=== PATIENT | male | born 1975 | race Caucasian/White ===

== ENCOUNTER → 2020-01-05 10:52 | Outpatient (BNVA) | payer SELFPAY | PROVIDERS: Family Provider Nurse Practitioner Family; PCP Nurse Practitioner Family; Visit Provider Nurse Practitioner Family | DX: R50.9 Fever, unspecified (principal); J40 Bronchitis, not specified as acute or chronic; J06.9 Acute upper respiratory infection, unspecified; B97.89 Other viral agents as the cause of diseases classified elsewhere | CPT/HCPCS: 85025; 87400; 87635 ==

== ENCOUNTER → 2021-04-06 16:10 | Outpatient (BNVA) | payer BC, SELFPAY | PROVIDERS: Family Provider Nurse Practitioner Family; PCP Family Medicine; Visit Provider Family Medicine | DX: Z09 Encounter for follow-up examination after completed treatment for conditions other than malignant neoplasm (principal); R53.83 Other fatigue; R07.9 Chest pain, unspecified | CPT/HCPCS: 84403; 84443; 85025 ==

== ENCOUNTER → 2021-06-15 15:00 | Outpatient (BNVA) | payer BC, SELFPAY | PROVIDERS: Family Provider Nurse Practitioner Family; PCP Family Medicine; Visit Provider Family Medicine | DX: E78.5 Hyperlipidemia, unspecified (principal); N52.9 Male erectile dysfunction, unspecified | CPT/HCPCS: 80053; 80061 ==

== ENCOUNTER → 2021-12-19 13:16 | Outpatient (BNVA) | payer BC, SELFPAY | PROVIDERS: Family Provider Nurse Practitioner Family; PCP Family Medicine; Visit Provider Family Medicine | DX: N52.9 Male erectile dysfunction, unspecified (principal); E78.5 Hyperlipidemia, unspecified | CPT/HCPCS: 80053; 80061; 84443; 85025 ==

== ENCOUNTER → 2022-05-04 15:58 | Outpatient (BNVA) | payer BC, SELFPAY | PROVIDERS: Family Provider Nurse Practitioner Family; PCP Family Medicine; Visit Provider Nurse Practitioner Family | DX: J02.9 Acute pharyngitis, unspecified (principal); Z20.822 Contact with and (suspected) exposure to COVID-19 | CPT/HCPCS: 87071; 87400; 87635; 87880 ==

== ENCOUNTER 2022-12-28 07:48 | Outpatient (CLI) | payer MEDICAID, SELFPAY ==
--- NOTE | 2022-12-28 08:00 | MR_ITS ---
WS: [id number] MRI HEAD WITH CONTRAST TECHNIQUE: Sagittal T1, T2 axial, T2 axial FLAIR, axial susceptibility weighted imaging, axial diffus ion weighted images, and coronal T2 images were obtained. Pre and post-T1 axial and post T1 coronal i mages. ADC and FSPGR images. CLINICAL INFORMATION: R51.9 - Headache, unspecified COMPARISON: None. FINDINGS: No evidence of restricted diffusion to suggest acute ischemia. Ventricular system and basal cisterns are patent. A few foci of T2 hyperintensity in the supratentorial white matter nonspecific in a patie nt this age but can be seen with migraine headaches. Normal posterior fossa. Normal vascular flow voi ds at the skull base. No extra-axial fluid collections. No evidence of mass or mass effect. LEFT mastoid tip effusion. RIGHT mastoid air cells are well aerated. Normal posterior nasopharynx. Mi ld mucosal thickening in the paranasal sinuses with fluid opacification RIGHT maxillary sinus. Normal posterior nasopharynx. No hemosiderin on susceptibly weighted images. Normal optic chiasm and pituitary infundibulum. Tempor al lobes and hippocampal formations are normal in appearance. Normal cavernous sinuses and Meckel's c ave. No abnormal gadolinium enhancement. Normal visualized dural venous sinuses. MR/MR head wo/w con [id number] IMPRESSION: 1. No evidence of restricted diffusion to suggest acute ischemia. 2. Mild supratentorial white matter changes mainly in the frontal lobes nonspe cific in a patient this age but can be seen with migraine headaches. 3. No abnormal gadolinium enhancement. 4. Normal optic chiasm and pituitary infundibulum. 5. RIGHT maxillary sinusitis. LEFT mastoid tip effusion. 6. No abnormal gadolinium enhancement. 7. No other suspicious findings.
[2022-12-28] MEDS: gadobenate dimeglumine 20 mL vial IV (08:31)
== END 2022-12-28 07:49 | disposition home or self-care (01) ==
LOC: RAD 07:50
PROVIDERS: PCP Family Medicine; Visit Provider Family Medicine
DX: R51.9 Headache, unspecified (principal); J32.0 Chronic maxillary sinusitis
CPT/HCPCS: 70553; A9577

== ENCOUNTER → 2023-03-12 15:27 | Outpatient (BNVA) | payer MEDICAID, SELFPAY | PROVIDERS: PCP Family Medicine; Visit Provider Nurse Practitioner Family | DX: E78.5 Hyperlipidemia, unspecified (principal); G43.909 Migraine, unspecified, not intractable, without status migrainosus; R09.81 Nasal congestion; F41.9 Anxiety disorder, unspecified | CPT/HCPCS: 80053; 80061; 82607; 84443; 85025 ==